=== PATIENT | male | born 1945 | race Caucasian/White ===

== ENCOUNTER 2019-03-26 08:52 | Inpatient (IN) | payer OTHER ==
[~2019-03-26] VITALS: Ht 162.6 cm; Wt 120.2 kg
[2019-03-26] MEDS ORDERED: LIPITOR20 MG PO (09:07)
[2019-03-26] MEDS ORDERED: DIOVAN320 MG (09:07)
[2019-03-26] MEDS ORDERED: LEVOTHYROXINE25 MCG (09:07)
[2019-03-26] MEDS ORDERED: PLAVIX75 MG (09:07)
[2019-03-26] MEDS ORDERED: HUMALOG MI100 UNIT/2 (09:08)
[2019-03-26] MEDS ORDERED: ASA81 MG (09:08)
[2019-03-26] MEDS ORDERED: CARVEDILOL6.25 MG (09:08)
[2019-03-26] MEDS ORDERED: LASIX20 MG (09:08)
== END 2019-03-27 13:00 | disposition home or self-care (01) | DRG 292 ==
LOC: ER 08:52 → MEDJ 16:39
PROVIDERS: ADMIT Internal Medicine
PROC: B246ZZZ Ultrasonography of Right and Left Heart (ICD-10-PCS; principal; 2019-03-26)
PROC: 4A033R1 Measurement of Arterial Saturation, Peripheral, Percutaneous Approach (ICD-10-PCS; 2019-03-26)
PROC: 4A12X4Z Monitoring of Cardiac Electrical Activity, External Approach (ICD-10-PCS; 2019-03-26)
DX: I11.0 Hypertensive heart disease with heart failure (principal); N18.4 Chronic kidney disease, stage 4 (severe); I25.758 Atherosclerosis of native coronary artery of transplanted heart with other forms of angina pectoris; I13.0 Hypertensive heart and chronic kidney disease with heart failure and stage 1 through stage 4 chronic kidney disease, or unspecified chronic kidney disease; I50.32 Chronic diastolic (congestive) heart failure; E11.22 Type 2 diabetes mellitus with diabetic chronic kidney disease; D63.1 Anemia in chronic kidney disease; I34.0 Nonrheumatic mitral (valve) insufficiency; E11.40 Type 2 diabetes mellitus with diabetic neuropathy, unspecified; Z88.0 Allergy status to penicillin; Z79.4 Long term (current) use of insulin